=== PATIENT | female | born 1930 | race Caucasian/White ===

== ENCOUNTER → 2016-12-25 | Outpatient (CLI) | payer MEDICARE | END | disposition home or self-care (01) | LOC: GMAB 17:12 | PROVIDERS: ATTEND Family Medicine | DX: G30.9 Alzheimer's disease, unspecified (principal); H53.16 Psychophysical visual disturbances; R48.3 Visual agnosia; E03.9 Hypothyroidism, unspecified ==

== ENCOUNTER → 2016-12-26 | Outpatient (CLI) | payer MEDICARE ==
--- NOTE | 2016-12-26 13:02 | MRI ---
EXAM DESCRIPTION: Brain w/o Contrast CLINICAL HISTORY: DEMENTIA COMPARISON: 11/04/2009 TECHNIQUE: Non contrast MRI of the brain is performed according to our usual protocol including multiplanar multi sequence technique. FINDINGS: No hemorrhage, mass effect, diffusion restriction, or acute infarction is present. Moderate generalized volume loss is present. Severe T2/FLAIR hyperintensities throughout the supratentorial white matter which have slightly progressed since the prior exam. Incidental 5 mm cystic structure along the right anterior aspect of the sella. This is slightly more conspicuous on today's exam, and appears to be within or abutting the anterior aspect of the pituitary gland on the sagittal T1 sequence. No abnormal extra-axial fluid collections are present. Normal flow voids are present. The calvarium is intact. Visualized paranasal sinuses and mastoid air cells are clear. IMPRESSION: 1. No acute intracranial abnormality. 2. 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 Given it is slightly more conspicuous on today's exam than the prior MRI, a follow-up MRI in one year should be considered. This is of uncertain but doubtful clinical significance. 3. Severe chronic microangiopathy. 4. Moderate volume loss. Electronically signed by: Marlo Malloy MD 12/26/2016 1:01 PM CDT
== END | disposition home or self-care (01) ==
LOC: MRI 08:55
PROVIDERS: ATTEND Family Medicine
DX: G30.9 Alzheimer's disease, unspecified (principal)

== ENCOUNTER → 2017-04-11 | Outpatient (CLI) | payer MEDICARE | END | disposition home or self-care (01) | LOC: BFHH 09:26 | PROVIDERS: ATTEND Family Medicine | DX: R30.0 Dysuria (principal); I10 Essential (primary) hypertension; E53.8 Deficiency of other specified B group vitamins ==

== ENCOUNTER → 2017-06-05 | Outpatient (CLI) | payer MEDICARE | END | disposition home or self-care (01) | LOC: BFHH 08:35 | PROVIDERS: ATTEND Family Medicine | DX: R30.0 Dysuria (principal) ==

== ENCOUNTER 2017-10-10 11:45 | Inpatient (IN) | payer MEDICARE ==
[2017-10-10] MEDS ORDERED: MORPHINE SULFATE INJ 10 MG/ML VIAL IV ONE (11:50)
[2017-10-10] MEDS ORDERED: PROMETHAZINE HCL INJ 12.5 MG in SODIUM CHLORIDE 0.9% 50ML 50 ML IVPB ONE (11:51)
--- NOTE | 2017-10-10 11:56 | ED.PDOC ---
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 Seen by Provider: 10/10/17 11:50 Source: patient, RN notes reviewed, Vital Signs reviewed - History of Present Illness Timing/Duration: just prior to arrival Hip Pain Location: hip (L) Method of Injury/Prior Injury: fell Improving Factors: nothing Associated Symptoms: denies symptoms Allergies/Adverse Reactions: Allergies NO KNOWN ALLERGY Allergy (Verified 10/10/17 11:55) Home Medications: Ambulatory Orders Bp Med 1 each PO DAILY 04/28/15 Review of Systems - Review of Systems Constitutional: States: no symptoms reported EENTM: States: no symptoms reported Respiratory: States: no symptoms reported Cardiology: States: no symptoms reported Gastrointestinal/Abdominal: States: no symptoms reported Genitourinary: States: no symptoms reported Musculoskeletal: States: joint pain Neurological: States: no symptoms reported Endocrine: States: no symptoms reported Hematologic/Lymphatic: States: no symptoms reported Past Medical History (General) - Patient Medical History Hx Stroke: No Hx Congestive Heart Failure: No Hx Hypertension: Yes Hx Diabetes: No Hx Gastroesophageal Reflux: - Episode of esophageal dilatation - Vaccination History Hx Influenza Vaccination: Yes - 2013 - Social History Hx Tobacco Use: No Physical Exam - Physical Exam General Appearance: Alert, Well Developed, Well Groomed, Well Hydrated Eyes, Ears, Nose, Throat Exam: PERRL/EOMI, normal ENT inspection, TMs normal, pharynx normal Neck Exam: non-tender, full range of motion, normal alignment, normal inspection Cardiovascular/Respiratory: regular rate, rhythm, no M/R/G, normal peripheral pulses, no JVD, normal breath sounds, no respiratory distress Peripheral Pulses: radial,right: 2+, radial,left: 2+, femoral,right: 2+, femoral ,left: 2+ Gastrointestinal/Abdominal: normal bowel sounds, non tender, soft, no organomegaly, no pulsatile mass Back Exam: normal inspection, no CVA tenderness Extremity Exam: tenderness, unable to bear weight, other - TENDER OVER LEFT HIP AND PAIN INCREASES WITH MOVEMENT MILD SHORTENING AND EXTERNAL ROTATION ALSO NOTED Progress - Progress Progress: 10/10/17 12:56 Laboratory Tests 10/10/17 10/10/17 10/10/17 11:30 11:30 11:30 WBC 5.1 RBC 4.79 Hgb 14.3 Hct 42.8 MCV 89.4 MCH 30.0 MCHC 33.5 RDW 14.0 Plt Count 299 MPV 7.0 L Absolute Neuts (auto) 2.80 Absolute Lymphs (auto) 1.50 Absolute Monos (auto) 0.60 Absolute Eos (auto) 0.20 Absolute Basos (auto) 0.10 Neutrophils % 55.4 Lymphocytes % 28.8 Monocytes % 10.8 H Eosinophils % 3.9 Basophils % 1.1 PT 10.9 INR 0.960 PTT (SP) 30.1 Sodium 136 Potassium 4.5 Chloride 103 Carbon Dioxide 25 Anion Gap 12.5 BUN 16 Creatinine 0.85 BUN/Creatinine Ratio 18.8 Random Glucose 96 Serum Osmolality 273.0 L Calcium 9.5 Total Bilirubin 0.5 AST 18 ALT 16 Alkaline Phosphatase 51 Serum Total Protein 7.6 Albumin 4.4 Globulin 3.2 Albumin/Globulin Ratio 1.4 Departure - Departure Clinical Impression: Fracture of left hip, Fracture of hip Time of Disposition: 12:59 Disposition: Admit Patient Departure Forms: ED Discharge - Pt. Copy, Patient Portal Self Enrollment Instructions: DI for Trauma Referrals: Alfredo Ervin MD [Primary Care Provider] - 1-2 Weeks Home Medications: Ambulatory Orders Bp Med 1 each PO DAILY 04/28/15 Decision To Admit - Decistion To Admit Decision to Admit Date: 10/10/17 Decision to Admit Time: 12:57
[2017-10-10] MEDS ORDERED: PROMETHAZINE HCL INJ 25 MG/ML VIAL ONE (12:20)
[2017-10-10] MEDS ORDERED: SODIUM CHLORIDE 0.9% 50ML 50 ML ONE (12:21)
--- NOTE | 2017-10-10 12:41 | RAD ---
EXAM DESCRIPTION: Chest,1 View CLINICAL HISTORY: pre op COMPARISON: 28 April 2015 TECHNIQUE: AP portable chest FINDINGS: Cardiomegaly is evident. A hiatus hernia is noted. No pleural fluid is seen. The lungs are clear. IMPRESSION: I see no acute cardiopulmonary pathology or significant interval change. Electronically signed by: Chivo Escobar MD 10/10/2017 12:40 PM [employer] [facility]
--- NOTE | 2017-10-10 12:42 | RAD ---
EXAM DESCRIPTION: Hip,Left 2 Views CLINICAL HISTORY: fall COMPARISON: 15 December 2011 TECHNIQUE: 2 views left FINDINGS: A left femoral neck fracture is observed. There is external rotation of the distal fracture fragment. No femur fracturing is observed. Degenerative changes are seen in the left sacroiliac joint. IMPRESSION: Subcapital left femoral neck fracture. Electronically signed by: Chivo Escobar MD 10/10/2017 12:41 PM [facility]
--- NOTE | 2017-10-10 12:43 | RAD ---
EXAM DESCRIPTION: Pelvis CLINICAL HISTORY: fx COMPARISON: 15 December 2011 TECHNIQUE: AP pelvis FINDINGS: A subcapital left femoral neck fracture is observed. Degenerative changes are observed in the right hip. Degenerative changes are also observed in the lower lumbar spine sacroiliac joints. No pelvic fracturing is detected. IMPRESSION: Left subcapital femoral neck fracture. Electronically signed by: Chivo Escobar MD 10/10/2017 12:42 PM [facility]
--- NOTE | 2017-10-10 14:28 | HP ---
SUPERVISING PHYSICIAN: Jorge Jackman M.D. CHIEF COMPLAINT: Left hip pain. HISTORY OF PRESENT ILLNESS: This is an 87 year-old female patient who was shopping at [employer] this morning. She felt like she was in a mitchell so when she got home she unloaded her groceries and threw her jacket over her chair. For some reason, she reached for the jacket and the next thing she knew she said she tumbled over. She said she has fallen frequently in the past but has always been able to get up. This time she could not get up. She pushed her medic alert button and EMS picked her up and brought her to the Emergency Room. In the Emergency Room, she was afebrile, heart rate 76, blood pressure 156/75 , respiratory rate 20 and O2 sat of 97%. Hip x-ray per radiology interpretation shows a subcapital left femoral neck fracture. The Emergency Room called Dr. Landin and he agreed for the patient to be admitted for surgical intervention to be done tomorrow. Chest x-ray per radiology interpretation shows no acute cardiopulmonary pathology. CBC was basically within normal limits. PT was 10.9, INR 0.96, PTT 30.1. Chemistry was basically within normal limits with the exception of her serum osmolality was slightly low at 273. Urinalysis was negative. I was called for admission to the hospital. PAST MEDICAL HISTORY: 1. Gastroesophageal reflux disease. 2. Hyperlipidemia. 3. Hypertension. 4. Hypothyroidism. 5. Osteoarthritis. 6. Dementia. PAST SURGICAL HISTORY: 1. Hysterectomy in 1959. 2. Knee surgery about 4 or 5 years ago. OUTPATIENT MEDICATIONS: Per the EMR and awaiting verification. ALLERGIES: NO KNOWN DRUG ALLERGIES. SOCIAL HISTORY: She is retired. She is . She denies any smoking, ETOH or illicit drug use. REVIEW OF SYSTEMS: Ten point review of systems is negative except as per History of Present Illness. PHYSICAL EXAMINATION: VITAL SIGNS: She is afebrile, heart rate 78, blood pressure 113/67, respiratory rate 18, O2 sat is 98% on room air. GENERAL: This is an 87 year-old female patient who is lying in her hospital bed. She is in no acute distress. HEENT: Normocephalic and atraumatic. Pupils are equal and reactive. Oropharynx is clear. Oral mucous membranes are moist. NECK: Supple without mass. RESPIRATORY: Essentially clear to auscultation bilaterally. CHEST: There is equal rise and fall of the chest with inspiration and expiration. CARDIOVASCULAR: Regular rate and rhythm. GASTROINTESTINAL: Abdomen is soft, nondistended, non-tender. Bowel sounds are positive. EXTREMITIES: No cyanosis, clubbing or edema. She is tender to palpation over the left lateral hip area. NEUROLOGIC: She is awake, alert and oriented times three. She does get slightly confused at times but reorients easily. LABORATORY: Labs and films are as per History of Present Illness. ASSESSMENT: 1. Left hip fracture status post same level fall awaiting surgical intervention per Dr. Isaac aLndin, orthopedic surgeon scheduled for tomorrow morning. 2. Gastroesophageal reflux disease. 3. Dementia. 4. Hypertension. PLAN: We will admit the patient to the hospital. I have initiated Dr. Landin's preoperative orthopedic orders. I have restarted her home medications. She will be NPO at midnight. I have encouraged good pulmonary hygiene. We will follow her tomorrow postoperatively and continue to monitor her closely and follow as needed. #[id number] [facility]
[2017-10-10] MEDS ORDERED: LACTATED RINGERS 1,000 ML IVS PRN (15:27)
[2017-10-10] MEDS: IV SET AND CAP CHANGE INJ INJ SCH (15:52)
[2017-10-10] MEDS ORDERED: MORPHINE SULFATE INJ 10 MG/ML VIAL IV PRN (15:55)
[2017-10-10] MEDS ORDERED: ALPRAZolam 0.5 MG TAB PO PRN (19:49)
[2017-10-10] MEDS ORDERED: PANTOPRAZOLE SODIUM IV 40 MG VIAL IV SCH (20:00)
[2017-10-10] MEDS ORDERED: DONEPEZIL HCL 5 MG TAB ONE (20:15)
[2017-10-10] MEDS ORDERED: QUEtiapine FUMARATE 25 MG TAB ONE (20:15)
[2017-10-10] MEDS: SODIUM CHLORIDE 0.9% (FLUSH) 10 ML SYG IV PRN (20:33)
[2017-10-10] MEDS: ALPRAZolam 0.5 MG TAB PO SCH (20:34)
[2017-10-10] MEDS ORDERED: NON-FORMULARY MEDICATION 1 EA MIS (Donepezil Hydrochloride [Aricept] 10 MG) PO SCH (21:00)
[2017-10-10] MEDS ORDERED: NON-FORMULARY MEDICATION 1 EA MIS (Quetiapine Fumarate [Seroquel] 50 MG) PO SCH (21:00)
[2017-10-11] MEDS: LACTATED RINGERS 1,000 ML IVS PRN ×3 (00:40→13:36)
[2017-10-11] MEDS ORDERED: VANCOMYCIN HCL INJ 1,000 MG in SODIUM CHLORIDE 0.9% 250ML 250 ML IVPB ONE (08:00)
[2017-10-11] MEDS ORDERED: ceFAZolin SODIUM 2 GM in SODIUM CHLORIDE 0.9% 100ML 100 ML IVPB ONE (08:00)
[2017-10-11] MEDS ORDERED: LEVOTHYROXINE SODIUM 0.1 MG TAB ONE (08:08)
[2017-10-11] MEDS ORDERED: LEVOTHYROXINE SODIUM 0.025 MG TAB ONE (08:08)
[2017-10-11] MEDS ORDERED: ceFAZolin SODIUM 1 GM VIAL ONE ×2 (08:10→09:09)
[2017-10-11] MEDS: LEVOTHYROXINE SODIUM 0.1 MG, LEVOTHYROXINE SODIUM 0.025 MG PO SCH ×2 (08:23)
[2017-10-11] MEDS: METOPROLOL TARTRATE 50 MG TAB PO SCH (08:25)
[2017-10-11] MEDS: amLODIPine BESYLATE 5 MG TAB PO SCH (08:30)
[2017-10-11] MEDS ORDERED: MIDAZOLAM INJ 2 MG/2 ML VIAL ONE (08:43)
[2017-10-11] MEDS ORDERED: fentaNYL CITRATE INJ 50 MCG/ML AMP ONE (08:43)
[2017-10-11] MEDS ORDERED: ROCURONIUM BROMIDE 10 MG/ML VIAL ONE (08:44)
[2017-10-11] MEDS ORDERED: LIDOCAINE 2 % GEL 5 ML TUBE TOP ONE (08:44)
[2017-10-11] MEDS ORDERED: MORPHINE SULFATE *EPIDURAL* 0.5 MG/ML VIAL ONE (08:44)
[2017-10-11] MEDS ORDERED: NON-FORMULARY MEDICATION 1 EA MIS (Levothyroxine Sodium [Synthroid] 125 MCG) PO SCH (09:00)
[2017-10-11] MEDS ORDERED: SODIUM CHLORIDE 0.9% 250ML 250 ML ONE ×3 (09:08→20:05)
[2017-10-11] MEDS ORDERED: VANCOMYCIN HCL INJ 1,000 MG VIAL IVPB ONE ×3 (09:08→20:07)
[2017-10-11] MEDS ORDERED: SODIUM CHLORIDE 0.9% 100ML 100 ML IVPB ONE (09:09)
[2017-10-11] MEDS ORDERED: LIDOCAINE 1% 10 ML VIAL INJ ONE (10:00)
[2017-10-11] MEDS ORDERED: ePHEDrine SULF 50 MG/ML ONE (10:00)
[2017-10-11] MEDS ORDERED: NEOSTIGMINE METHYLSULFATE 1 MG/ML ML IV ONE (10:00)
[2017-10-11] MEDS ORDERED: METOCLOPRAMIDE HCL INJ 10 MG/2 ML VIAL ONE (10:00)
[2017-10-11] MEDS ORDERED: DEXAMETHASONE INJ 10 MG/ML VIAL ONE (10:00)
[2017-10-11] MEDS ORDERED: PROPOFOL 200 MG/20 ML VIAL IV ONE (10:00)
[2017-10-11] MEDS: ceFAZolin SODIUM 1 GM VIAL ONE ×2 (11:27→12:21)
[2017-10-11] MEDS: BUPIVACAINE 0.25% W/EPI 50 ML VIAL INJ ONE ×2 (11:27→13:06)
[2017-10-11] MEDS: VANCOMYCIN HCL INJ 1,000 MG VIAL IVPB ONE ×2 (11:27→12:21)
--- NOTE | 2017-10-11 14:30 | RAD ---
EXAM DESCRIPTION: Hip,Left 2 Views CLINICAL HISTORY: post-op COMPARISON: October 10, 2017 IMPRESSION: 2 views of the left hip show postsurgical changes from resection of the femoral head and neck. Left hip arthroplasty with cement fixation of the femoral component is seen. No complicating features are identified. Soft tissue emphysema around the left hip is seen related to recent surgery. Electronically signed by: Reid Mei MD 10/11/2017 2:29 PM [facility]
[2017-10-11] MEDS ORDERED: ceFAZolin SODIUM 2 GRAMS PREMI 50 ML IVPB ONE (14:32)
--- NOTE | 2017-10-11 14:33 | RAD ---
EXAM DESCRIPTION: Pelvis,2 or More Views CLINICAL HISTORY: post-op COMPARISON: October 10, 2017 IMPRESSION: AP supine neutral and frog-leg lateral views of the pelvis show interval left hip arthroplasty with cement fixation of the femoral component. No complicating features are seen. There remains moderate to severe osteoarthritic changes of the right hip. Soft tissue emphysema around the left proximal femur and pelvis are seen consistent with recent surgery. Severe disc degenerative changes of the partly visualized lower lumbar spine are seen. Electronically signed by: Reid Mei MD 10/11/2017 2:32 PM [facility]
[2017-10-11] MEDS ORDERED: ceFAZolin SODIUM 2 GRAMS PREMI 2 GM in PREMIX BAG 1 BAG IVPB SCH (16:00)
[2017-10-11] MEDS ORDERED: VANCOMYCIN HCL INJ 1,000 MG in SODIUM CHLORIDE 0.9% 250ML 250 ML IVPB SCH (18:00)
[2017-10-11] MEDS: ceFAZolin SODIUM 2 GRAMS PREMI 2 GM in PREMIX BAG 1 BAG IVPB SCH (18:11)
--- NOTE | 2017-10-11 18:45 | PN ---
DATE: 10/11/17 SUPERVISING PHYSICIAN: Jorge Jackman M.D. SUBJECTIVE: The patient is sitting up in her bed eating her clear liquid meal. I am seeing her postoperatively after her left hemiarthroplasty performed by Dr. Isaac Landin, orthopedic surgeon. She has no complaints of shortness of breath, chest pain, nausea, vomiting, diarrhea or hip pain. She actually says she is pain free at this point. OBJECTIVE: VITAL SIGNS: She is afebrile, heart rate 96, blood pressure 114/69, respiratory rate 18, O2 sat is 94% on 4 liters nasal cannula. RESPIRATORY: Essentially clear to auscultation bilaterally. CARDIAC: Regular rate and rhythm. ABDOMEN: Soft, nondistended, non-tender. Bowel sounds are positive. EXTREMITIES: Bilateral pedal pulses are palpable at +2. The dressing to her left lateral hip is dry and intact. NEUROLOGIC: She is awake, alert and oriented times three. LABORATORY: There are no labs or films to report at this time. ASSESSMENT: 1. Left hemiarthroplasty performed by Dr. Isaac Landin, postoperative day zero after left hip fracture status post same level fall. 2. Gastroesophageal reflux disease. 3. Mild dementia. 4. Hypertension. PLAN: We will continue present supportive care. I have ordered some lab for in the morning. Orthopedic issues will be per Dr. Isaac Landin. Her medications have all been restarted. She will start her strengthening and conditioning tomorrow with Physical Therapy. I have encouraged good pulmonary hygiene. We will continue to monitor the patient closely and follow as needed. Dr. Jackman is the collaborating physician available for consultation. #[id number] [facility]
[2017-10-11] MEDS ORDERED: ENOXAPARIN SODIUM 30 MG/0.3 ML SYG SUBCU ONE (20:06)
[2017-10-11] MEDS: VANCOMYCIN HCL INJ 1,000 MG in SODIUM CHLORIDE 0.9% 250ML 250 ML IVPB SCH (20:28)
[2017-10-11] MEDS: DONEPEZIL HCL 5 MG TAB PO SCH (20:34)
[2017-10-11] MEDS: QUEtiapine FUMARATE 25 MG TAB PO SCH (20:35)
[2017-10-11] MEDS: ALPRAZolam 0.5 MG TAB PO SCH ×2 (20:59→22:13)
[2017-10-12] MEDS: LACTATED RINGERS 1,000 ML IVS PRN ×3 (00:02→22:08)
[2017-10-12] MEDS ORDERED: ceFAZolin SODIUM 2 GRAMS PREMI 50 ML IVPB ONE ×2 (01:28→10:50)
[2017-10-12] MEDS: ENOXAPARIN SODIUM 30 MG/0.3 ML SYG SUBCU SCH ×2 (01:30→14:09)
[2017-10-12] MEDS: ceFAZolin SODIUM 2 GRAMS PREMI 2 GM in PREMIX BAG 1 BAG IVPB SCH ×2 (01:31→10:57)
[2017-10-12] MEDS: PANTOPRAZOLE SODIUM TAB 40 MG PO SCH (06:50)
[2017-10-12] MEDS ORDERED: LEVOTHYROXINE SODIUM 0.1 MG TAB ONE ×2 (08:01→19:34)
[2017-10-12] MEDS ORDERED: SODIUM CHLORIDE 0.9% 250ML 250 ML ONE (08:01)
[2017-10-12] MEDS ORDERED: LEVOTHYROXINE SODIUM 0.025 MG TAB ONE ×2 (08:01→19:34)
[2017-10-12] MEDS ORDERED: VANCOMYCIN HCL INJ 1,000 MG VIAL IVPB ONE (08:02)
[2017-10-12] MEDS: METOPROLOL TARTRATE 50 MG TAB PO SCH (08:10)
[2017-10-12] MEDS: VANCOMYCIN HCL INJ 1,000 MG in SODIUM CHLORIDE 0.9% 250ML 250 ML IVPB SCH (08:11)
[2017-10-12] MEDS: LEVOTHYROXINE SODIUM 0.1 MG, LEVOTHYROXINE SODIUM 0.025 MG PO SCH ×2 (08:14)
[2017-10-12] MEDS: amLODIPine BESYLATE 5 MG TAB PO SCH (08:14)
--- NOTE | 2017-10-12 09:23 | PN ---
DATE: 10/12/17 SUBJECTIVE: Ms. Recio is doing well. She has no pain at this time. OBJECTIVE: Afebrile. Vital signs stable. Dressing is clean, dry and intact. ASSESSMENT: Status post hemiarthroplasty. PLAN: At this point, she is to begin physical therapy today for full weight- bearing. #[id number] [facility]
--- NOTE | 2017-10-12 10:05 | OP ---
DATE OF PROCEDURE: 10/11/17 PREOPERATIVE DIAGNOSIS: 1. Left femoral neck fracture. POSTOPERATIVE DIAGNOSIS: 1. Left femoral neck fracture. PROCEDURE: 1. Left hip hemiarthroplasty. SURGEON: Isaac Landin MD. INSULATION WORKER: Bret Hernandez CST, SA-C. ANESTHESIA: General. COMPLICATIONS: None. FINDINGS: Left femoral neck fracture. INDICATION: Ms. Recio is an 87-year-old female with a history of a fall that occurred on the day of presentation. She was brought to the Emergency Room and x-rays revealed a fracture of the femoral neck. She was admitted and I was consulted. We discussed options for this and after discussing the risks, benefits and alternatives to operative therapy, she gave informed consent for hemiarthroplasty. PROCEDURE: The patient was brought to the Operating Room and placed in supine position. Anesthesia was induced and the patient was transitioned into the lateral decubitus position. The leg and hemipelvis were sterilely prepped and draped and an incision was made centered on the greater trochanter with extension both proximally and distally. Dissection was carried down to the iliotibial band which was sharply incised along the course of its fibers. A Charnley retractor was placed and the abductor musculature was identified. The anterior one-third of the abductor musculature was elevated off the greater trochanter using electrocautery and the capsule was incised. The femoral head was removed and the primary femoral neck cut was made. The acetabulum was examined and found to be free of any significant defect, therefore attention was focused on the femur. The femoral canal was sequentially broached until an appropriate sized trial prosthesis was placed. A trial femoral head was placed and the hip was reduced. The hip was taken through a full range of motion and demonstrated stability without impingement or pending dislocation and the leg length appeared to be paresthesias. Following trialing, the trial component was removed and the femoral canal was prepared for cementation of the prosthesis. A distal cement restrictor was placed and the final component was cemented into place. The excess cement was removed and the remaining cement was allowed to cure. The final head was impacted and the hip was reduced, taken through a full range of motion, and found to be stable without impingement. The wound was thoroughly irrigated and the abductor musculature was reapproximated to the greater trochanter through drill holes using Ethibond. The repair was augmented with PDS suture and the iliotibial band was subsequently closed. The subcutaneous tissues were closed with a combination of running and interrupted subcuticular stitches, a sterile dressing was placed , and the patient was transitioned into the supine position. The patient was awoken from anesthesia and taken to the Recovery Room in stable condition. POSTOPERATIVE INSTRUCTIONS: The patient will be weight-bearing as tolerated on postoperative day 1. #[id number] [facility]
--- NOTE | 2017-10-12 15:21 | PN ---
DATE: 10/12/17 SUBJECTIVE: The patient is lying in the bed reading a newspaper. She is tilting over towards the right side with her left leg extended. She is stating that it is requiring at least 2 people to help get her out of the bed and into the chair. She is fully awake and alert. No shortness of breath or nausea and vomiting. No bowel movement recently. OBJECTIVE: Afebrile, pulse 74, blood pressure 111/72, pulse oximetry 94% on room air. Lungs are generally clear. Heart tones regular. Abdomen is soft. The left hip has a clean dressing. coloration of the lower extremities appear to be within normal limits with some ecchymosis around the left hip region. LABORATORY: White count of 7,200, hemoglobin 10.7 postoperatively. Sodium 134 , BUN 19, glucose 138, calcium 8.3. ASSESSMENT: 1. Postoperative day #1 left hemiarthroplasty of the hip after a subcapital fracture from same level fall. 2. History of gastroesophageal reflux disease. 3. Mild dementia. 4. Hypertension. PLAN: Continue rehabilitation with maximum improvement projected before she will be able to return home. The patient because of her significant injury may require Swing Bed status for continued rehabilitation when she has reached her maximum level of rehab after surgery. Continue close observation and management and reevaluate in the morning. #[id number] [facility]
[2017-10-12] MEDS: HYDROcodone 10MG/APAP 325MG 1 EA TAB PO PRN ×2 (17:42→22:06)
[2017-10-12] MEDS: DONEPEZIL HCL 5 MG TAB PO SCH (20:00)
[2017-10-12] MEDS: ALPRAZolam 0.5 MG TAB PO SCH (20:01)
[2017-10-12] MEDS: QUEtiapine FUMARATE 25 MG TAB PO SCH (20:01)
[2017-10-13] MEDS: ENOXAPARIN SODIUM 30 MG/0.3 ML SYG SUBCU SCH ×2 (02:16→14:24)
[2017-10-13] MEDS: PANTOPRAZOLE SODIUM TAB 40 MG PO SCH (06:35)
[2017-10-13] MEDS: LEVOTHYROXINE SODIUM 0.1 MG, LEVOTHYROXINE SODIUM 0.025 MG PO SCH ×2 (06:35)
[2017-10-13] MEDS: LACTATED RINGERS 1,000 ML IVS PRN (07:46)
[2017-10-13] MEDS: amLODIPine BESYLATE 5 MG TAB PO SCH (10:05)
[2017-10-13] MEDS: METOPROLOL TARTRATE 50 MG TAB PO SCH (10:05)
[2017-10-13] MEDS: HYDROcodone 10MG/APAP 325MG 1 EA TAB PO PRN (12:39)
[2017-10-13] MEDS: IV SET AND CAP CHANGE INJ INJ SCH (14:24)
--- NOTE | 2017-10-13 18:49 | PN ---
DATE: 10/13/17 SUBJECTIVE: The patient is sitting up in the chair. She required less nursing assistance in her transfer from bed to the chair today than yesterday. Today is her second day postoperative. Appetite is only fair. No shortness of breath or nausea and vomiting, and her pain seems to be better as well. OBJECTIVE: Afebrile, pulse 73, blood pressure 130/74, pulse oximetry 94% on room air. No laboratory drawn today. LUNGS: Clear. HEART: Tones regular. ABDOMEN: Soft. EXTREMITIES: The hip dressing is dry and the patient has improved range of motion and slightly less discomfort upon weightbearing to the left hip. ASSESSMENT: 1. Postoperative day #2 left hemiarthroplasty of the hip after a subcapital fracture from same level fall at home. 2. History of gastroesophageal reflux disease. 3. Mild dementia by history. 4. History of hypertension. PLAN: Continue physical therapy and orthopedically supervised rehabilitation to try to achieve maximum improvement before she will be able to safely return home. At this time after discussing with Physical Therapy, it appears that the patient will eventually benefit from Swing Bed administration for continued rehabilitation since she does live at home alone and is 87 years old, and will require as much conditioning and confidence building to help prevent injury by further falls. Decision for Swing Bed to be made at some time, possibly in the next 1 or 2 days. #[id number] [facility]
[2017-10-13] MEDS ORDERED: LEVOTHYROXINE SODIUM 0.025 MG TAB ONE (19:43)
[2017-10-13] MEDS ORDERED: LEVOTHYROXINE SODIUM 0.1 MG TAB ONE (19:43)
[2017-10-13] MEDS: ALPRAZolam 0.5 MG TAB PO SCH (21:33)
[2017-10-13] MEDS: DONEPEZIL HCL 5 MG TAB PO SCH (21:34)
[2017-10-13] MEDS: SODIUM CHLORIDE 0.9% (FLUSH) 10 ML SYG IV PRN (21:34)
[2017-10-13] MEDS: QUEtiapine FUMARATE 25 MG TAB PO SCH (21:34)
[2017-10-14] MEDS: ENOXAPARIN SODIUM 30 MG/0.3 ML SYG SUBCU SCH ×2 (01:23→14:45)
[2017-10-14] MEDS: LEVOTHYROXINE SODIUM 0.1 MG, LEVOTHYROXINE SODIUM 0.025 MG PO SCH ×2 (06:09)
[2017-10-14] MEDS: PANTOPRAZOLE SODIUM TAB 40 MG PO SCH (06:10)
[2017-10-14] MEDS: METOPROLOL TARTRATE 50 MG TAB PO SCH (08:35)
[2017-10-14] MEDS: amLODIPine BESYLATE 5 MG TAB PO SCH (08:35)
[2017-10-14] MEDS: HYDROcodone 10MG/APAP 325MG 1 EA TAB PO PRN (14:58)
--- NOTE | 2017-10-14 19:48 | PN ---
DATE: 10/14/17 SUPERVISING PHYSICIAN: Jorge Jackman M.D. SUBJECTIVE: The patient is resting in bed. She just got up from her chair. She notes her pain is well controlled. She has been without any fevers. She has had no shortness of breath. OBJECTIVE: She has been afebrile, temperature 97.2, pulse 95, blood pressure 129/82, respirations 18, satting 97% on room air. I's and O's show a positive balance of 1238 with 1840 in, 602 out with weight being at 68.1 kg. CHEST: Clear to auscultation. HEART: Regular rate and rhythm. ABDOMEN: Soft, non- tender. Positive bowel sounds. EXTREMITIES: No clubbing, cyanosis or edema. The left hip has a dressing in place which is clean and dry. No signs of infection. Distally pulses are strong. Capillary refill is brisk. LABORATORY: H&H shows to be at 9.8 and 28.6 with platelet count 167,000. Chemistries show a mildly low potassium at 3.3 with BUN 15, creatinine 0.75, calcium 8.2. ASSESSMENT: 1. Postoperative day #3 left hemiarthroplasty of the hip after a subcapital fracture from same level fall at home. 2. History of gastroesophageal reflux disease. 3. Mild dementia by history. 4. History of hypertension. PLAN: Will continue with her physical therapy under the guidance of orthopedic services and Physical Therapy department. Will continue to monitor closely as she progresses with anticipation of hopefully being able to go to Swing Bed tomorrow for continued rehabilitation as she does live at home alone and is the advanced age of 87 years. Until discharge, will continue to monitor and treat appropriately. #[id number] [facility]
[2017-10-14] MEDS ORDERED: LEVOTHYROXINE SODIUM 0.025 MG TAB ONE (20:17)
[2017-10-14] MEDS ORDERED: LEVOTHYROXINE SODIUM 0.1 MG TAB ONE (20:17)
[2017-10-14] MEDS: QUEtiapine FUMARATE 25 MG TAB PO SCH (20:33)
[2017-10-14] MEDS: DONEPEZIL HCL 5 MG TAB PO SCH (20:33)
[2017-10-14] MEDS: ALPRAZolam 0.5 MG TAB PO SCH (20:34)
[2017-10-15] MEDS: ENOXAPARIN SODIUM 30 MG/0.3 ML SYG SUBCU SCH (01:34)
[2017-10-15] MEDS: PANTOPRAZOLE SODIUM TAB 40 MG PO SCH (06:03)
[2017-10-15] MEDS: LEVOTHYROXINE SODIUM 0.1 MG, LEVOTHYROXINE SODIUM 0.025 MG PO SCH ×2 (06:03)
[2017-10-15] MEDS: amLODIPine BESYLATE 5 MG TAB PO SCH (08:02)
[2017-10-15] MEDS: METOPROLOL TARTRATE 50 MG TAB PO SCH (08:02)
[2017-10-15] MEDS: HYDROcodone 10MG/APAP 325MG 1 EA TAB PO PRN (08:04)
--- NOTE | 2017-10-15 08:57 | PN ---
DATE: 10/15/17 SUBJECTIVE: She is doing really well today, had a great night's sleep, and is not having any pain. OBJECTIVE: Afebrile. Vital signs stable. Wound is clean. There are no signs or symptoms of infection. ASSESSMENT: Status post hemiarthroplasty. PLAN: The plan at this point is her to continue on her weight-bearing status. She appears to be making progress. She will be transitioned to Swing Bed. #[id number] [facility]
[2017-10-15 10:42] VITALS: BP 107/70; TEMP 97.8; O2SAT 96
--- NOTE | 2017-10-15 19:13 | DS ---
SUPERVISING PHYSICIAN: Rodolfo Merrill MD DISCHARGE DIAGNOSIS: 1. Postoperative day #4 left hemiarthroplasty of the hip after a subcapital fracture from same level fall at home requiring continued physical therapy and admission to Swing Bed. 2. History of gastroesophageal reflux disease. 3. Mild dementia by history. 4. History of hypertension. REASON FOR HOSPITALIZATION: Ms. Recio is an 87-year-old female patient who was shopping at [employer] on the morning of 10/10/17. She felt like she was in a mitchell, so when she got home she unloaded her groceries and threw her jacket over her chair. For some reason, she reached for the jacket and the next thing she knew she said she tumbled over. She said she has fallen frequently in the past but has always been able to get up. This time she could not get up. She pushed her medic alert button and EMS picked her up and brought her to the Emergency Room. In the Emergency Room, she was afebrile, hemodynamically stable. Hip x-ray per radiology interpretation showed a subcapital left femoral neck fracture. Dr. Landin, orthopedic surgeon, was consulted through the Emergency Room and the patient was admitted for surgical intervention that was completed on 10/11/17. She was admitted in stable condition. LABORATORY STUDIES: CBC on admission showed a white count of 5,100. At discharge, it was 5,200. Hemoglobin initially was 14.3, hematocrit 42.8. At discharge, hemoglobin was 9.8, hematocrit 28.6. Platelet count was within normal limits at discharge at 167,000. Differential was without a left shift. Coagulation studies on admission showed a normal PT, PT-T. Chemistries showed normal electrolytes on admission with potassium 4.5. On 10/14/17 prior to discharge, she was showing a mildly low potassium at 3.3. Otherwise, electrolytes were within normal limits. BUN 15, creatinine 0.75. Urinalysis on admission showed urine within normal limits. Repeat urinalysis after catheterization showed 15 ketones, trace lysed blood, otherwise still within normal limits. MICROBIOLOGY: No microbiology specimens submitted. RADIOLOGY: Initially in the Emergency Room, she had a pelvis and hip x-ray and per radiologic interpretation, there was note of subcapital left femoral neck fracture. She also had a chest x-ray and per radiologic interpretation showed no acute cardiopulmonary pathology or significant interval changes compared to April 2015. After surgery, again, a pelvis x-ray and hip x-ray were completed which showed postsurgical changes from resection of femoral head and neck with left hip replacement with cement fixation. No complicating features were identified. No additional radiographical studies were submitted. HOSPITAL COURSE: As noted in history of present illness, Ms. Recio was admitted on 10/10/17 after sustaining a fall at home resulting in a left hip fracture. She was taken to surgery on 10/11/17 after being admitted to the Medical/Surgical Floor at which time Dr. Landin performed a left hip hemiarthroplasty. She was recovered and returned to the Medical/Surgical Floor. She did well postoperatively. She was able to participate with physical therapy. She had no complications in regard to her medical history. She has been progressing well with her physical therapy, but had not successfully met all her established goals. The fact that she does live by herself and her advanced age, it was felt the patient would best be served by being admitted for additional physical therapy and ongoing reconditioning on Swing Bed admission. PLAN: The patient was discharged on 10/15/17 to be admitted to Swing Bed for ongoing physical therapy. #[id number] [facility]
== END 2017-10-15 10:46 | disposition swing bed (61) | DRG 470 ==
LOC: ER 11:45 → UNDOADMIN 14:22 → MS 14:22
PROVIDERS: ADMIT Nurse Practitioner Acute Care; ATTEND Nurse Practitioner Family
PROC: 0SRS0J9 Replacement of Left Hip Joint, Femoral Surface with Synthetic Substitute, Cemented, Open Approach (ICD-10-PCS; principal; 2017-10-11 10:22)
DX: S72.012A Unspecified intracapsular fracture of left femur, initial encounter for closed fracture (principal); K21.9 Gastro-esophageal reflux disease without esophagitis; F03.90 Unspecified dementia, unspecified severity, without behavioral disturbance, psychotic disturbance, mood disturbance, and anxiety; I10 Essential (primary) hypertension; E78.5 Hyperlipidemia, unspecified; E03.9 Hypothyroidism, unspecified; M19.90 Unspecified osteoarthritis, unspecified site; W19.XXXA Unspecified fall, initial encounter; Y92.009 Unspecified place in unspecified non-institutional (private) residence as the place of occurrence of the external cause

== ENCOUNTER 2017-10-15 11:10 | Inpatient (IN) | payer MEDICARE ==
[2017-10-15] MEDS ORDERED: ACETAMINOPHEN 500 MG TAB PO PRN (12:34)
[2017-10-15] MEDS ORDERED: SODIUM PHOS/BIPHOS ENEMA ADULT 133 ML BTTL PR PRN (12:34)
[2017-10-15] MEDS ORDERED: HYDROcodone 5MG/APAP 325MG 1 EA TAB PO PRN (12:34)
[2017-10-15] MEDS ORDERED: MAGNESIUM HYDROXIDE 30 ML UD PO PRN (12:34)
--- NOTE | 2017-10-15 12:40 | PCM.CORE ---
Physician DVT/VTE - Prophylaxis Currently: Patient already on anticoagulation therapy - xarelto - Nurse DVT Assessment & Total Each Risk Factor Represents 5 Points: Hip,Pelvis,leg Fx <1month Each Risk Factor Represents 3 Points: Age over 75 years Each Risk Factor is 1 Point: Obesity (BMI >25) DVT Assessment Score: 9 - 5 or more Very High Risk Treatments: Early Ambulation *, Sequential Compression Device
[2017-10-15] MEDS ORDERED: CYANOCOBALAMIN INJ 1,000 MCG/ML INJ IM SCH (13:00)
--- NOTE | 2017-10-15 19:00 | HP ---
SUPERVISING PHYSICIAN: Rodolfo Merrill MD REASON FOR ADMISSION: Ongoing physical therapy for a left hip hemiarthroplasty. HISTORY OF PRESENT ILLNESS: Ms. Recio is an 87-year-old, female patient that was initially admitted to Acute Care on 10/10/17 after she sustained a same level fall at home. She noted she was shopping on the same day at [email or web address], had gone home and felt that she was rushed, unloaded her groceries, threw her jacket over the chair and for some reason reached for her jacket and fell. She had fallen frequently in the past, but on this occasion was unable to get up. At that time, she pushed her medic alert button and the ambulance responded and she was brought to the Emergency Room. In the Emergency Room, she was found to have a left subcapital femoral neck fracture. She was then admitted to the Medical/Surgical Floor and on 10/11/17, she was taken to surgery by Dr. Isaac Landin who did a left hemiarthroplasty for repair of the hip. She recovered postoperatively and followed on Acute Care with physical therapy and progressed fairly well, but continued to show a need for ongoing physical therapy as she was not completely meeting her goals. She also lives alone without any assistance and it was felt she would be best served to continue with ongoing physical therapy to ensure that once she was discharged she would be safe to prevent any further risk for fall. She is now being admitted to Swing Bed for ongoing physical therapy and reconditioning. PAST MEDICAL HISTORY: 1. Gastroesophageal reflux disease. 2. Hyperlipidemia. 3. Hypertension. 4. Hypothyroidism. 5. Osteoarthritis. 6. Dementia. PAST SURGICAL HISTORY: 1. Left hip hemiarthroplasty for left hip fracture as noted above. 2. Hysterectomy in 1959. 3. Knee surgery about 4 or 5 years ago. OUTPATIENT MEDICATIONS: Please refer to electronic medical record for verified medication list. ALLERGIES: NO KNOWN DRUG ALLERGIES. SOCIAL HISTORY: She is retired. She is . She denies ever smoking, alcohol or illicit drug use. She does live alone. REVIEW OF SYSTEMS: Ten-point review of systems was negative except for as per history of present illness noted above. PHYSICAL EXAMINATION: VITAL SIGNS: Temperature 98.1. Pulse 101. Blood pressure 107/70. Respirations 18. Saturation 96% on room air. Admission weight 69.3 kg. GENERAL: The patient is resting in the chair and just finished physical therapy. She appears to be in no acute distress. She has had good pain control. She is alert and oriented, well-nourished, well-hydrated. HEENT: Tympanic membranes clear bilaterally. Oropharynx is pink, moist without any lesions. NECK: Supple, nontender with full range of motion. CHEST: Lungs clear to auscultation, just slightly diminished towards the bases. No rhonchi, wheezes, or rales. CARDIOVASCULAR: Regular rate and rhythm without any appreciable murmurs, gallops, or rubs. ABDOMEN: Soft, nontender. Positive bowel sounds. EXTREMITIES: There is no cyanosis, clubbing or edema noted. Left hip has a small surgical dressing in place. It is clean and dry. There is no notable erythema or sign of infection. Distally, pulses are strong bilaterally with capillary being brisk. NEUROLOGIC: The patient is alert and oriented times three. LABORATORY: No laboratory pending at time of admission. RADIOLOGY: No studies pending at time of admission. ASSESSMENT: 1. Postoperative day #4 left hemiarthroplasty of the hip after a subcapital fracture from same level fall at home, requiring ongoing physical therapy, rehabilitation and admission to Swing Bed. 2. History of gastroesophageal reflux disease. 3. Mild dementia by history. 4. History of hypertension. PLAN: The patient is to be admitted to Swing Bed for ongoing physical therapy and rehabilitation. We will continue to follow the patient medically and defer all physical therapy and orthopedic treatment and needs to Dr. Landin and physical therapy. We will continue to monitor the patient closely as she progresses through her Swing Bed admission. We will anticipate length of stay to be at least 3 to 7 days. She does live alone and has advanced age and will certainly need to meet her goals and be strong enough to go home without any significant risk of falls. Until then, we will continue to monitor the patient closely and treat appropriately. #[id number] [facility]
[2017-10-15] MEDS ORDERED: LEVOTHYROXINE SODIUM 0.1 MG TAB ONE (20:07)
[2017-10-15] MEDS ORDERED: LEVOTHYROXINE SODIUM 0.025 MG TAB ONE (20:07)
[2017-10-15] MEDS: QUEtiapine FUMARATE 25 MG TAB PO SCH (20:32)
[2017-10-15] MEDS: ALPRAZolam 0.5 MG TAB PO SCH (20:32)
[2017-10-15] MEDS: DONEPEZIL HCL 5 MG TAB PO SCH (20:32)
[2017-10-15] MEDS: RIVAROXABAN 10 MG TAB PO SCH (20:32)
[2017-10-16] MEDS: LEVOTHYROXINE SODIUM 0.1 MG TAB PO SCH (06:07)
[2017-10-16] MEDS: LEVOTHYROXINE SODIUM 0.025 MG TAB PO SCH (06:07)
[2017-10-16] MEDS: METOPROLOL TARTRATE 50 MG TAB PO SCH (08:24)
[2017-10-16] MEDS ORDERED: RIVAROXABAN 10 MG TAB PO SCH (09:00)
[2017-10-16] MEDS ORDERED: NON-FORMULARY MEDICATION 1 EA MIS (Levothyroxine Sodium [Synthroid] 125 MCG) PO SCH (09:00)
[2017-10-16] MEDS ORDERED: MAGNESIUM 250 MG PO SCH (09:00)
[2017-10-16] MEDS: ASPIRIN EC 81 MG TAB PO SCH (09:32)
[2017-10-16] MEDS: ASCORBIC ACID 500 MG TAB PO SCH (09:32)
[2017-10-16] MEDS: DOCUSATE SODIUM 100 MG CAP PO SCH (09:32)
[2017-10-16] MEDS: MAGNESIUM OXIDE 400 MG TAB PO SCH (09:32)
[2017-10-16] MEDS: amLODIPine BESYLATE 5 MG TAB PO SCH (09:33)
[2017-10-16] MEDS ORDERED: ONDANSETRON 4 MG TAB PO PRN (12:24)
--- NOTE | 2017-10-16 20:10 | PN ---
DATE: 10/16/17 SUBJECTIVE: Today is day #1 of her Swing Bed rehabilitation status. She is up walking in the hallways. She is alert and communicative. She is still having a fair amount of pain, especially in the left hip region after her recent subcapital left hip fracture and hemiarthroplasty repair. Appetite is fairly good. She states that she is feeling a little bit better today than two days ago and we hope that improvement will continue. OBJECTIVE: VITAL SIGNS: Afebrile, blood pressure 103/66, pulse oximetry 93% on room air. Pulse 79. ABDOMEN: Soft. LUNGS: Clear. HEART: Tones regular. LEFT HIP: No drainage into the dressing of the left hip incision. LABORATORY/RADIOLOGY: No lab or x-rays recently. ASSESSMENT: 1. Postoperative day #5 left hemiarthroplasty of the hip to repair a subcapital fracture of the left femur from same level fall at home requiring ongoing physical therapy, rehabilitation currently the first day of admission to Swing Bed. 2. History of gastroesophageal reflux disease. 3. Mild dementia by history. 4. History of hypertension. PLAN: Continue with Swing Bed rehabilitation with physical therapy and orthopedic surgical supervision. When the patient will be able to safely return home after a course of rehabilitation, the patient will continue with outpatient management at that time. #[id number] [facility]
[2017-10-16] MEDS: RIVAROXABAN 10 MG TAB PO SCH (21:03)
[2017-10-16] MEDS: DONEPEZIL HCL 5 MG TAB PO SCH (21:03)
[2017-10-16] MEDS: QUEtiapine FUMARATE 25 MG TAB PO SCH (21:03)
[2017-10-16] MEDS: ALPRAZolam 0.5 MG TAB PO SCH (21:03)
[2017-10-17] MEDS: LEVOTHYROXINE SODIUM 0.1 MG TAB PO SCH (06:32)
[2017-10-17] MEDS: LEVOTHYROXINE SODIUM 0.025 MG TAB PO SCH (06:32)
[2017-10-17] MEDS: METOPROLOL TARTRATE 50 MG TAB PO SCH (07:05)
[2017-10-17] MEDS: ASCORBIC ACID 500 MG TAB PO SCH (08:00)
[2017-10-17] MEDS: DOCUSATE SODIUM 100 MG CAP PO SCH (08:00)
[2017-10-17] MEDS: MAGNESIUM OXIDE 400 MG TAB PO SCH (08:00)
[2017-10-17] MEDS: ASPIRIN EC 81 MG TAB PO SCH (08:00)
[2017-10-17] MEDS: amLODIPine BESYLATE 5 MG TAB PO SCH (08:00)
--- NOTE | 2017-10-17 15:11 | PN ---
DATE: 10/17/17 SUBJECTIVE: The patient is still actively participating with her rehabilitation. Still describing discomfort in her left hip but showing some positive improvement in her mental outlook. She is hoping to make plans to return home as soon as she reaches a safe point of rehab achievement. Will discuss with the therapist her ongoing goals. PLAN: Continue with rehabilitation and strengthening until able to safely return home. #[id number] [facility]
[2017-10-17] MEDS: QUEtiapine FUMARATE 25 MG TAB PO SCH (21:16)
[2017-10-17] MEDS: ALPRAZolam 0.5 MG TAB PO SCH (21:16)
[2017-10-17] MEDS: RIVAROXABAN 10 MG TAB PO SCH (21:17)
[2017-10-17] MEDS: DONEPEZIL HCL 5 MG TAB PO SCH (21:17)
[2017-10-18] MEDS: LEVOTHYROXINE SODIUM 0.025 MG TAB PO SCH (06:00)
[2017-10-18] MEDS: LEVOTHYROXINE SODIUM 0.1 MG TAB PO SCH (06:00)
[2017-10-18] MEDS: METOPROLOL TARTRATE 50 MG TAB PO SCH (07:16)
[2017-10-18] MEDS: ASCORBIC ACID 500 MG TAB PO SCH (08:00)
[2017-10-18] MEDS: DOCUSATE SODIUM 100 MG CAP PO SCH (08:00)
[2017-10-18] MEDS: ASPIRIN EC 81 MG TAB PO SCH (08:00)
[2017-10-18] MEDS: MAGNESIUM OXIDE 400 MG TAB PO SCH (08:00)
[2017-10-18] MEDS: amLODIPine BESYLATE 5 MG TAB PO SCH (08:00)
[2017-10-18] MEDS: QUEtiapine FUMARATE 25 MG TAB PO SCH (20:50)
[2017-10-18] MEDS: DONEPEZIL HCL 5 MG TAB PO SCH (20:50)
[2017-10-18] MEDS: ALPRAZolam 0.5 MG TAB PO SCH (20:51)
[2017-10-18] MEDS: RIVAROXABAN 10 MG TAB PO SCH (20:51)
[2017-10-19] MEDS: LEVOTHYROXINE SODIUM 0.1 MG TAB PO SCH (06:45)
[2017-10-19] MEDS: LEVOTHYROXINE SODIUM 0.025 MG TAB PO SCH (06:45)
[2017-10-19] MEDS: METOPROLOL TARTRATE 50 MG TAB PO SCH (07:49)
[2017-10-19] MEDS: MAGNESIUM OXIDE 400 MG TAB PO SCH (09:01)
[2017-10-19] MEDS: ASPIRIN EC 81 MG TAB PO SCH (09:01)
[2017-10-19] MEDS: ASCORBIC ACID 500 MG TAB PO SCH (09:01)
[2017-10-19] MEDS: DOCUSATE SODIUM 100 MG CAP PO SCH (09:01)
[2017-10-19] MEDS: amLODIPine BESYLATE 5 MG TAB PO SCH (09:09)
[2017-10-19] MEDS: ALPRAZolam 0.5 MG TAB PO SCH (21:25)
[2017-10-19] MEDS: QUEtiapine FUMARATE 25 MG TAB PO SCH (21:25)
[2017-10-19] MEDS: RIVAROXABAN 10 MG TAB PO SCH (21:26)
[2017-10-19] MEDS: DONEPEZIL HCL 5 MG TAB PO SCH (21:26)
[2017-10-20] MEDS: LEVOTHYROXINE SODIUM 0.025 MG TAB PO SCH (06:18)
[2017-10-20] MEDS: LEVOTHYROXINE SODIUM 0.1 MG TAB PO SCH (06:18)
[2017-10-20] MEDS: METOPROLOL TARTRATE 50 MG TAB PO SCH (08:00)
[2017-10-20] MEDS: ASCORBIC ACID 500 MG TAB PO SCH (09:30)
[2017-10-20] MEDS: ASPIRIN EC 81 MG TAB PO SCH (09:30)
[2017-10-20] MEDS: MAGNESIUM OXIDE 400 MG TAB PO SCH (09:30)
[2017-10-20] MEDS: amLODIPine BESYLATE 5 MG TAB PO SCH (09:30)
[2017-10-20] MEDS: DOCUSATE SODIUM 100 MG CAP PO SCH (09:30)
[2017-10-20] MEDS: DONEPEZIL HCL 5 MG TAB PO SCH (20:43)
[2017-10-20] MEDS: QUEtiapine FUMARATE 25 MG TAB PO SCH (20:43)
[2017-10-20] MEDS: ALPRAZolam 0.5 MG TAB PO SCH (20:43)
[2017-10-20] MEDS: RIVAROXABAN 10 MG TAB PO SCH (20:44)
[2017-10-21] MEDS: LEVOTHYROXINE SODIUM 0.1 MG TAB PO SCH (06:23)
[2017-10-21] MEDS: LEVOTHYROXINE SODIUM 0.025 MG TAB PO SCH (06:23)
[2017-10-21] MEDS: ASCORBIC ACID 500 MG TAB PO SCH (08:02)
[2017-10-21] MEDS: DOCUSATE SODIUM 100 MG CAP PO SCH (08:02)
[2017-10-21] MEDS: MAGNESIUM OXIDE 400 MG TAB PO SCH (08:03)
[2017-10-21] MEDS: ASPIRIN EC 81 MG TAB PO SCH (08:03)
[2017-10-21] MEDS: amLODIPine BESYLATE 5 MG TAB PO SCH (08:03)
[2017-10-21] MEDS: METOPROLOL TARTRATE 50 MG TAB PO SCH (08:03)
[2017-10-21] MEDS: QUEtiapine FUMARATE 25 MG TAB PO SCH (21:00)
[2017-10-21] MEDS: ALPRAZolam 0.5 MG TAB PO SCH (21:00)
[2017-10-21] MEDS: DONEPEZIL HCL 5 MG TAB PO SCH (21:00)
[2017-10-21] MEDS: RIVAROXABAN 10 MG TAB PO SCH (21:00)
[2017-10-22] MEDS: LEVOTHYROXINE SODIUM 0.1 MG TAB PO SCH (06:22)
[2017-10-22] MEDS: LEVOTHYROXINE SODIUM 0.025 MG TAB PO SCH (06:22)
--- NOTE | 2017-10-22 08:53 | PN ---
SUPERVISING PHYSICIAN: Rodolfo Merrill MD DATE: 10/21/17 SUBJECTIVE: The patient is doing well with physical therapy. She is approaching her goal and has had no other complications. OBJECTIVE: VITAL SIGNS: Stable. Pulse 76. Blood pressure 101/68. Respirations 17. Saturation 97% on room air. Temperature 97.8. CHEST: Lungs clear to auscultation bilaterally. HEART: Regular rate and rhythm. ABDOMEN: Soft, nontender. Positive bowel sounds. EXTREMITIES: No cyanosis, clubbing or edema. Left hip has a dressing in place that is clean and dry with no signs of infection. Distal pulses are strong. Capillary refill is brisk. NEUROLOGIC: Alert and oriented times three. LABORATORY: No studies available for review. RADIOLOGY: No studies available for review. ASSESSMENT: 1. Postoperative day #10 for left hemiarthroplasty of the hip after a subcapital fracture from same level fall at home, requiring ongoing physical therapy, rehabilitation on Swing Bed admission. 2. History of gastroesophageal reflux disease. 3. Mild dementia by history. 4. History of hypertension. PLAN: We will continue to follow the patient as she progresses through physical therapy under the guidance of the physical therapy department and Dr. Landin. We will anticipate discharge once she has met her goals. Until then, we will continue to monitor the patient closely and treat appropriately. #[id number] [facility]
[2017-10-22] MEDS: ASCORBIC ACID 500 MG TAB PO SCH (09:02)
[2017-10-22] MEDS: ASPIRIN EC 81 MG TAB PO SCH (09:02)
[2017-10-22] MEDS: METOPROLOL TARTRATE 50 MG TAB PO SCH (09:02)
[2017-10-22] MEDS: MAGNESIUM OXIDE 400 MG TAB PO SCH (09:02)
[2017-10-22] MEDS: DOCUSATE SODIUM 100 MG CAP PO SCH (09:02)
[2017-10-22] MEDS: amLODIPine BESYLATE 5 MG TAB PO SCH (09:02)
[2017-10-22] MEDS: ALPRAZolam 0.5 MG TAB PO SCH (20:31)
[2017-10-22] MEDS: RIVAROXABAN 10 MG TAB PO SCH (20:31)
[2017-10-22] MEDS: QUEtiapine FUMARATE 25 MG TAB PO SCH (20:31)
[2017-10-22] MEDS: DONEPEZIL HCL 5 MG TAB PO SCH (20:31)
[2017-10-23] MEDS: LEVOTHYROXINE SODIUM 0.025 MG TAB PO SCH (06:04)
[2017-10-23] MEDS: LEVOTHYROXINE SODIUM 0.1 MG TAB PO SCH (06:04)
[2017-10-23] MEDS: METOPROLOL TARTRATE 50 MG TAB PO SCH (08:26)
[2017-10-23] MEDS: amLODIPine BESYLATE 5 MG TAB PO SCH (09:21)
[2017-10-23] MEDS: ASPIRIN EC 81 MG TAB PO SCH (09:21)
[2017-10-23] MEDS: ASCORBIC ACID 500 MG TAB PO SCH (09:21)
[2017-10-23] MEDS: DOCUSATE SODIUM 100 MG CAP PO SCH (09:21)
[2017-10-23] MEDS: MAGNESIUM OXIDE 400 MG TAB PO SCH (09:21)
[2017-10-23 10:32] VITALS: BP 122/54; TEMP 98.1; O2SAT 100
--- NOTE | 2017-10-23 10:53 | DS ---
SUPERVISING PHYSICIAN: Jorge Jackman MD ADMISSION DIAGNOSIS: 1. Postoperative left hip hemiarthroplasty following a fracture due to a same level fall. 2. History of gastroesophageal reflux disease. 3. Mild dementia. 4. History of hypertension. DISCHARGE DIAGNOSIS: 1. Postoperative left hip hemiarthroplasty following a fracture due to a same level fall. 2. History of gastroesophageal reflux disease. 3. Mild dementia. 4. History of hypertension. HOSPITAL COURSE: Ms. Recio is an 87-year-old female who underwent left hip hemiarthroplasty on 10/11/17. She progressed to the point where she needed a little bit more physical therapy and, therefore, was admitted to Swing Bed on . During the Swing Bed stay, the patient underwent physical therapy. Home medications were continued as well as her daily Xarelto post hip surgery. She has progressed to the point now where she can go home. She will have home health at home as well. She will be discharged in stable condition. DISCHARGE MEDICATIONS: 1. Xarelto 10 mg q.h.s. for 13 more days. DISCHARGE CONDITION: Stable. DISCHARGE DIET: A per previous diet prior to hospitalization. FOLLOWUP: Appointments as scheduled with primary care provider as well as the surgeon. ACTIVITY: As per physical therapy. #[id number] [facility]
== END 2017-10-23 14:15 | disposition home health service (06) | DRG 561 ==
LOC: MS 11:10
PROVIDERS: ADMIT Nurse Practitioner Family; ATTEND Nurse Practitioner
PROC: F07Z9ZZ Gait Training/Functional Ambulation Treatment (ICD-10-PCS; principal; 2017-10-15)
DX: S72.012D Unspecified intracapsular fracture of left femur, subsequent encounter for closed fracture with routine healing (principal); Z96.642 Presence of left artificial hip joint; Z60.2 Problems related to living alone; K21.9 Gastro-esophageal reflux disease without esophagitis; E78.5 Hyperlipidemia, unspecified; I10 Essential (primary) hypertension; E03.9 Hypothyroidism, unspecified; M19.90 Unspecified osteoarthritis, unspecified site; F03.90 Unspecified dementia, unspecified severity, without behavioral disturbance, psychotic disturbance, mood disturbance, and anxiety

== ENCOUNTER → 2018-05-14 | Outpatient (CLI) | payer MEDICARE | LOC: GMAE 10:57 | PROVIDERS: ATTEND Family Medicine | DX: E53.8 Deficiency of other specified B group vitamins (principal); E03.9 Hypothyroidism, unspecified; D64.9 Anemia, unspecified ==

== ENCOUNTER → 2018-05-30 | Outpatient (CLI) | payer MEDICARE | LOC: GMAE 11:18 | PROVIDERS: ATTEND Family Medicine | DX: E53.8 Deficiency of other specified B group vitamins (principal) ==

== ENCOUNTER → 2018-07-12 | Outpatient (CLI) | payer MEDICARE | LOC: GMAE 13:16 | PROVIDERS: ATTEND Family Medicine | DX: R30.0 Dysuria (principal) ==

== ENCOUNTER → 2019-08-20 | Outpatient (CLI) | payer MEDICARE | LOC: GMAE 10:19 | PROVIDERS: ATTEND Family Medicine | DX: E03.9 Hypothyroidism, unspecified (principal); E78.2 Mixed hyperlipidemia; I10 Essential (primary) hypertension ==

== ENCOUNTER 2019-10-23 18:19 | Emergency (ER) | payer MEDICARE ==
--- NOTE | 2019-10-23 19:24 | CT ---
PROCEDURE: CT Head CLINICAL HISTORY: 89 years Female confusion TECHNIQUE: Contiguous axial CT images obtained through the brain without IV contrast. Coronal and sagittal reformatted images also provided. This exam was performed according to our department optimization program which includes automated exposure control, adjustment of the mA and/or kv according to patient size and/or use of iterative reconstruction technique. COMPARISON: No prior exams provided for comparison. FINDINGS: There is no intracranial hemorrhage, extraaxial collection, or evidence of acute transcortical infarction. Confluent areas of low attenuation within the periventricular and subcortical white matter are most compatible with chronic microvascular disease. There are basal ganglia calcifications and moderate diffuse volume loss without mass effect or midline shift. Vascular calcifications are noted. No lesion of the skull base or calvarium is identified. The paranasal sinuses and mastoid air cells are clear. IMPRESSION: No acute intracranial abnormality. Chronic microvascular changes and volume loss. Electronically signed by: Radha De La Paz MD 10/23/2019 7:22 PM [facility]
--- NOTE | 2019-10-23 20:35 | ED.PDOC ---
History of Present Illness - General Chief Complaint: General Stated Complaint: general decline in status Time Seen by Provider: 10/23/19 18:47 Source: patient, family Exam Limitations: no limitations - History of Present Illness Initial Comments: The patient is an 89-year-old female presented to the emergency room with her family secondary to some mild increased confusion. The patient does have some very significant dementia. Recently she has been on and off multiple medications. She does obviously have some mild dementia but she is cooperative. She recognizes her family members. She is moving everything well. No vision changes and extraocular movements are intact. No difficulty with swallowing. No difficulty with coordination or ambulation. No obvious sensory or muscle changes. She does have a history of hypomagnesemia, hypothyroidism and urinary tract infections. She is asymptomatic at this time. Family presents secondary to concern for possibly a small stroke causing the increased confusion. Timing/Duration: 1/2 hour Severity: mild Improving Factors: nothing Worsening Factors: nothing Associated Symptoms: denies symptoms Allergies/Adverse Reactions: Allergies NO KNOWN ALLERGY Allergy (Verified 10/23/19 18:50) Home Medications: Ambulatory Orders ALPRAZolam [Xanax] 0.5 mg PO BEDTIME 10/10/17 ALPRAZolam [Xanax] 0.5 mg PO DAILY PRN 10/10/17 Ascorbic Acid [Vitamin C] 1,000 mg PO DAILY 10/10/17 Aspirin [Naz Low Dose] 81 mg PO DAILY 10/10/17 Bisacodyl [Dulcolax Tab] 5 mg PO DAILY PRN 10/10/17 Cyanocobalamin Inj [Vitamin B-12 Inj] 1,000 mcg IM MONTHLY 10/10/17 Donepezil Hydrochloride [Aricept] 10 mg PO BEDTIME 10/10/17 Levothyroxine Sodium [Synthroid] 125 mcg PO DAILY 10/10/17 Linaclotide [Linzess] 290 mcg PO DAILY PRN 10/10/17 Magnesium 250 mg PO DAILY 10/10/17 Meloxicam [Mobic] 7.5 mg PO DAILY 10/10/17 Metoprolol Tartrate [Lopressor] 50 mg PO DAILY 10/10/17 Quetiapine Fumarate [Seroquel] 50 mg PO BEDTIME 10/10/17 amLODIPine BESYLATE [Norvasc] 10 mg PO DAILY 10/10/17 raNITIdine HCL [Zantac] 150 mg PO DAILY PRN 10/10/17 HYDROcodone 10MG/APAP 325MG [[place] 103[address]] 0.5 - 1 ea PO Q4H PRN tab 10/15/17 Rivaroxaban [Xarelto] 10 mg PO QD 13 Days tab 10/23/17 Review of Systems - Review of Systems Constitutional: States: no symptoms reported EENTM: States: no symptoms reported Respiratory: States: no symptoms reported Cardiology: States: no symptoms reported Gastrointestinal/Abdominal: States: no symptoms reported Genitourinary: States: no symptoms reported Musculoskeletal: States: no symptoms reported Skin: States: no symptoms reported Neurological: States: see HPI Endocrine: States: no symptoms reported All other Systems: No Change from Baseline Past Medical History (General) - Patient Medical History Hx Seizures: No Hx Stroke: No Hx Asthma: No Hx of COPD: No Hx Congestive Heart Failure: No Hx Pacemaker: No Hx Hypertension: Yes Hx Thyroid Disease: No Hx Diabetes: No Hx Gastroesophageal Reflux: - Episode of esophageal dilatation Hx Cancer: No Hx MRSA: No Surgical History: Hysterectomy - Vaccination History Hx Tetanus, Diphtheria Vaccination: No Hx Influenza Vaccination: Yes Hx Pneumococcal Vaccination: Yes - Social History Hx Tobacco Use: No Hx Alcohol Use: Yes - wine Hx Substance Use: No Hx Substance Use Treatment: No Hx Depression: No Hx Physical Abuse: No Hx Emotional Abuse: No - Female History Patient is a Female of Child Bearing Age (10 -59 yrs old): No Family Medical History - Family History Father Living Status: Hx Family Cancer: Yes Physical Exam - Physical Exam General Appearance: Alert, Comfortable, No apparent distress Eye Exam: bilateral normal Ears, Nose, Throat: hearing grossly normal, normal ENT inspection, normal pharynx Neck: full range of motion, supple Respiratory: lungs clear, normal breath sounds, no respiratory distress, no accessory muscle use Cardiovascular/Chest: normal peripheral pulses, no edema, other - Regular rate Peripheral Pulses: radial,right: 2+, radial,left: 2+ Gastrointestinal/Abdominal: non tender, soft Rectal Exam: deferred Back Exam: no CVA tenderness, no vertebral tenderness Extremity: normal range of motion, non-tender, normal inspection, no pedal edema, no calf tenderness, normal capillary refill 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 Some dementia is obvious. Skin Exam: normal color Comments: Vital Signs - 24 hr 10/23/19 10/23/19 18:45 19:20 Temperature 98.1 F Pulse Rate [ 79 68 monitor] Respiratory 16 16 Rate Blood Pressure 176/83 176/83 [ra] O2 Sat by Pulse 98 97 Oximetry Progress - Progress Progress: 10/23/19 20:36 The patient is an 89-year-old female presented emergency room with family secondary to some recent increased confusion. Family's concern is for stroke. Do not see any obvious evidence of any stroke with this patient at this time. Head CT is reassuring. Laboratory work is reassuring. I would encourage them to bring in a urine for urinalysis within the next couple of days because she does have a history of UTIs which can sometimes worsen confusion. She was unable to give a urine here tonight. Regularizing the dementia and psychiatric medications may also help to reduce intermittent confusion with the patient. Keep routine follow-up with primary care doctor. Keep well-hydrated. ER warnings are given. jennifer segal [phone] - Results/Orders Results/Orders: Head CT shows no acute pathology. No evidence of any stroke. Chronic changes are present. Laboratory Tests 10/23/19 10/23/19 19:12 19:12 WBC 4.2 L RBC 4.43 Hgb 13.4 Hct 39.2 MCV 88.6 MCH 30.2 MCHC 34.1 RDW 14.3 Plt Count 286 MPV 6.9 L Absolute Neuts (auto) 2.60 Absolute Lymphs (auto) 1.00 Absolute Monos (auto) 0.50 Absolute Eos (auto) 0.10 Absolute Basos (auto) 0.00 Neutrophils % 61.5 Lymphocytes % 23.7 Monocytes % 12.0 H Eosinophils % 1.7 Basophils % 1.1 Sodium 142 Potassium 3.6 Chloride 107 Carbon Dioxide 23 Anion Gap 15.6 BUN 24 H Creatinine 0.73 BUN/Creatinine Ratio 32.9 H Random Glucose 101 Serum Osmolality 287.3 Calcium 9.4 Magnesium 2.0 Total Bilirubin 0.8 AST 15 ALT 10 Alkaline Phosphatase 39 L Creatine Kinase 48 CK-MB (CK-2) 2.5 Troponin I 0.02 Serum Total Protein 6.6 Albumin 4.0 Globulin 2.6 Albumin/Globulin Ratio 1.5 TSH 0.43 - EKG/XRAY/CT CT Ordered: No CT Interpretation Call Back: No Departure - Departure Clinical Impression: Confusion state Dementia Qualifiers: Dementia type: Alzheimer's disease Alzheimer's disease onset: late-onset Dementia behavioral disturbance: without behavioral disturbance Qualified Code(s): 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 Copy, Patient Portal Self Enrollment Instructions: Dementia (DC) Diet: regular diet Activity: increase activity as tolerated Referrals: BARBIE RODRIGUEZ MD [Primary Care Provider] - 1-2 Weeks Home Medications: Ambulatory Orders ALPRAZolam [Xanax] 0.5 mg PO BEDTIME 10/10/17 ALPRAZolam [Xanax] 0.5 mg PO DAILY PRN 10/10/17 Ascorbic Acid [Vitamin C] 1,000 mg PO DAILY 10/10/17 Aspirin [Naz Low Dose] 81 mg PO DAILY 10/10/17 Bisacodyl [Dulcolax Tab] 5 mg PO DAILY PRN 10/10/17 Cyanocobalamin Inj [Vitamin B-12 Inj] 1,000 mcg IM MONTHLY 10/10/17 Donepezil Hydrochloride [Aricept] 10 mg PO BEDTIME 10/10/17 Levothyroxine Sodium [Synthroid] 125 mcg PO DAILY 10/10/17 Linaclotide [Linzess] 290 mcg PO DAILY PRN 10/10/17 Magnesium 250 mg PO DAILY 10/10/17 Meloxicam [Mobic] 7.5 mg PO DAILY 10/10/17 Metoprolol Tartrate [Lopressor] 50 mg PO DAILY 10/10/17 Quetiapine Fumarate [Seroquel] 50 mg PO BEDTIME 10/10/17 amLODIPine BESYLATE [Norvasc] 10 mg PO DAILY 10/10/17 raNITIdine HCL [Zantac] 150 mg PO DAILY PRN 10/10/17 HYDROcodone 10MG/APAP 325MG [[place] 10/325] 0.5 - 1 ea PO Q4H PRN tab 10/15/17 Rivaroxaban [Xarelto] 10 mg PO QD 13 Days tab 10/23/17 Additional Instructions: The patient is an 89-year-old female presented emergency room with family secondary to some recent increased confusion. Family's concern is for stroke. Do not see any obvious evidence of any stroke with this patient at this time. Head CT is reassuring. Laboratory work is reassuring. I would encourage them to bring in a urine for urinalysis within the next couple of days because she does have a history of UTIs which can sometimes worsen confusion. She was unable to give a urine here tonight. Regularizing the dementia and psychiatric medications may also help to reduce intermittent confusion with the patient. Keep routine follow-up with primary care doctor. Keep well-hydrated. ER warnings are given.
[2019-10-23 21:09] VITALS: BP 157/77; TEMP 97.9; O2SAT 98
== END 2019-10-23 21:00 | disposition home or self-care (01) ==
LOC: ER 18:19
DX: R41.0 Disorientation, unspecified (principal); G30.1 Alzheimer's disease with late onset; F02.80 Dementia in other diseases classified elsewhere, unspecified severity, without behavioral disturbance, psychotic disturbance, mood disturbance, and anxiety; E03.9 Hypothyroidism, unspecified; I10 Essential (primary) hypertension; Z79.899 Other long term (current) drug therapy; Z79.82 Long term (current) use of aspirin; Z87.440 Personal history of urinary (tract) infections

== ENCOUNTER → 2019-10-24 | Outpatient (CLI) | payer MEDICARE | LOC: LAB.NP 08:06 | PROVIDERS: ATTEND Family Medicine | DX: R30.0 Dysuria (principal); R41.82 Altered mental status, unspecified ==

== ENCOUNTER → 2019-10-29 | Outpatient (CLI) | payer MEDICARE | LOC: GMAE 14:44 | PROVIDERS: ATTEND Family Medicine | DX: R62.7 Adult failure to thrive (principal); R06.00 Dyspnea, unspecified; R41.0 Disorientation, unspecified ==